=== PATIENT | male | born 1965 | race Caucasian/White ===

== ENCOUNTER 2017-04-09 16:59 | Inpatient (IN) | payer OTHER ==
[~2017-04-09] VITALS: Ht 188 cm; Wt 216.0 kg
[~2017-04-09 16:59] MED LIST: AMLO1CAP9 PO; ATOR10TA PO; BUME1TAB4 PO; FAMO-119 PO; IBUP-2055 PO; POTA20TA8 PO; TRAM50TA2 PO
--- OUTSIDE RECORDS SUMMARY | 2017-04-09 17:05 | XMS REPORT | Referral Summary ---
Author Author [facility] [place] Organization [facility] [place], [facility] Address Unknown Phone Unavailable Care Team Providers Care Bankruptcy Legal Assistant Name Role Phone Jordykim Ned Sr PCP Encounter VC Date(s): 12/04/15 - 12/04/15 Via [facility], Sleep [facility] [address] [place], [place] [address] Discharge Disposition: 01-Home or Self Care Attending Physician: Nargis Haywood Admitting Physician: Nargis Haywood Referring Physician: Nargis Haywood Vital Signs No data available for this section Problem List Condition Effective Dates Status Health Status Informant Obstructive sleep Active apnea, adult(Confirmed) Allergies, Adverse Reactions, Alerts No Known Allergies Medications amoxicillin 500 mg oral capsule 1 caps, Oral, TID, # 30 caps, 0 Refill(s) Start Date: 06/18/14 Stop Date: 06/28/14 Status: Ordered Blood pressure medication Blood pressure medication, 0 Refill(s) Start Date: 07/21/14 Status: Ordered buPROPion 150 mg/24 hours (XL) oral tablet, extended release 1 tabs, Oral, q24hr, # 30 tabs, 0 Refill(s) Start Date: 06/18/14 Status: Ordered hydrocortisone-acetic acid 1%-2% otic solution 3 drops, Ear-Both, QID, # 10 mL, 0 Refill(s) Start Date: 06/18/14 Stop Date: 06/21/14 Status: Ordered Klor-Con M20 oral tablet, extended release 1 tabs, Oral, BID, # 180 tabs, 0 Refill(s) Start Date: 06/18/14 Status: Ordered Results No data available for this section Immunizations Vaccine Date Refusal Reason tetanus-diphth toxoids (Td) adult/adol 11/12/97 Procedures No data available for this section Social History Social History Type Response Smoking Status Never smoker1 1no smokers in the house Assessment and Plan No data available for this section
--- OUTSIDE RECORDS SUMMARY | 2017-04-09 17:05 | XMS REPORT | Referral Summary ---
Author Author Via [facility] [place] Organization Via [facility], [place] [facility] [place] Address Unknown Phone Unavailable Care Team Providers Care Photographic Press Screwmaker Name Role Phone Jordykim Ned Sr PCP Encounter VC Date(s): 02/26/16 - 02/26/16 Via [facility], Sleep Center, [place] [address] [address] careG[address] [place], [place] [address] Discharge Diagnosis: RITIKA treated with BiPAP. Discharge Disposition: 01-Home or Self Care Attending Physician: Hardeep Hodges MD Admitting Physician: Hardeep Hodges MD Vital Signs Most recent to 1 oldest [Reference Range]: Peripheral Pulse 89 bpm Rate [60-100 bpm] (02/26/16 2:55 PM) Blood Pressure 124/80 mmHg [90-140/60-90 mmHg] (02/26/16 2:55 PM) SpO2 96 % (02/26/16 2:55 PM) Problem List Condition Effective Dates Status Health Status Informant Hyperlipemia(Confirm Active patient ed) Obstructive sleep Active apnea, adult(Confirmed) Allergies, Adverse Reactions, Alerts Substance Reaction Severity Status Lortab Nausea Severe Active Percocet 5/325 Nausea Severe Active Medications amLODIPine-benazepril 5 mg-10 mg oral capsule 2 caps, Oral, Daily Start Date: 12/08/15 Status: Ordered atorvastatin 10 mg oral tablet 10 mg 1 tabs, Oral, Bedtime (once a day) Start Date: 12/08/15 Status: Ordered bumetanide 1 mg, Oral, Daily, Fluid Overload Symptoms Start Date: 12/08/15 Status: Ordered ibuprofen 400 mg, Oral, BID Start Date: 12/08/15 Status: Ordered Klor-Con 20 mEq, Oral, Daily Start Date: 12/08/15 Status: Ordered Results No data available for this section Immunizations Vaccine Date Refusal Reason tetanus-diphth toxoids (Td) adult/adol 11/12/97 Procedures Procedure Date Related Diagnosis Body Site Colonoscopy Foot1 Vasectomy 1LEFT FOOT, MASS OF VESSELS THAT HAS BEEN REMOVED TWICE Social History Social History Type Response Smoking Status Never smoker1 1no smokers in the house Assessment and Plan No data available for this section
--- OUTSIDE RECORDS SUMMARY | 2017-04-09 17:05 | XMS REPORT | Referral Summary ---
Author Author Via [facility], [facility], [place] [facility] [place] Organization Via [facility], [facility], [place] [facility] [place] Address Unknown Phone Unavailable Care Team Providers Care Environmental Lawyer Name Role Phone Ned Restrepo PCP Encounter VC Date(s): 12/18/15 - 12/18/15 Via [facility], Sleep Center, [place] [address] [address] [place], [place] [address] Discharge Diagnosis: Obstructive sleep apnea, adult Discharge Disposition: 01-Home or Self Care Attending Physician: Hardeep Hodges MD Admitting Physician: Hardeep Hodges MD Vital Signs Most recent to 1 oldest [Reference Range]: Peripheral Pulse 84 bpm Rate [60-100 bpm] (12/18/15 8:06 AM) Blood Pressure 132/88 mmHg [90-140/60-90 mmHg] (12/18/15 8:06 AM) SpO2 96 % (12/18/15 8:06 AM) Problem List Condition Effective Dates Status Health [...] smokers in the house Assessment and Plan Extracted from: Title: Office Visit Note Author: Hardeep Hodges MD Date: 12/18/15 Assessment/Plan Obstructive sleep apnea, adult This 50 showed gentleman has a mild degree of obstructive sleep apnea that may have become worse over the years. He just had a CPAP re-titration study that moved his CPAP pressure out of prior rangesbeforesome central apneas were detected. I do not believe he will end up with a significant treatment emergent central apnea phenomenon,but the BiPAP utilized for the remainder of his titration study can be employed for comfortwhile treating his RITIKA at higher pressure. He will be set at BiPAP 19/15 cm pressure with no underlying respiratory rate and follow-up in 4-6 weeks to report on symptoms. If he is doing well and his download shows adequate control over his condition, he can then reschedule thesurgeries that hehad to have postponed until his condition comes under better control. The patient and any accompanying family expressed understanding and agreement with this plan after having had adequate time to ask and have questions answered.
--- OUTSIDE RECORDS SUMMARY | 2017-04-09 17:05 | XMS REPORT | Referral Summary ---
Author Author [facility] [place] [facility] [place], [facility] Address Unknown Phone Unavailable Care Team Providers Care Community Resource Officer Name Role Phone Ned Restrepo Orin PCP Encounter VC Date(s): 05/30/16 - 05/30/16 [facility] [place], [facility] [address] [place], [place] [address] Discharge Disposition: 01-Home or Self Care Attending Physician: Hardeep Hodges MD Admitting Physician: Hardeep Hodges MD Referring Physician: Hardeep Hodges MD Vital Signs No data available for this [...]
--- OUTSIDE RECORDS SUMMARY | 2017-04-09 17:05 | XMS REPORT | Referral Summary ---
Author Author [facility], [place] [facility] [place] Organization [facility] [place], [place] [facility] [place] Address Unknown Phone Unavailable Care Team Providers Care Security Developer Name Role Phone Ned Restrepo Orin PCP Encounter VC Date(s): 01/01/16 - 01/01/16 [facility] [place], [facility] [address] [place], [place] [address] Discharge Disposition: 01-Home or Self [...] house Assessment and Plan Extracted from: Title: BIPAP SET UP Author: Michelle Martell REVENUE AGENT Date: 01/01/16 Replacement set up IPAP 19cm, EPAP 15cm, aircurve 10s, humidifier, end cap, S10 filters, simplus M seal 10mo RENT Dr Hodges
--- OUTSIDE RECORDS SUMMARY | 2017-04-09 17:05 | XMS REPORT | Referral Summary ---
Author Author [facility], [place] [facility] [place] Organization [facility] [place], [facility] Address Unknown Phone Unavailable Care Team Providers Care Plush Weaver Name Role Phone Ned Restrepo Orin PCP Encounter VC Date(s): 12/14/15 - 12/14/15 [facility] [place], [facility] [address] [place], [place] [address] Discharge Disposition: 01-Home or Self [...]
--- OUTSIDE RECORDS SUMMARY | 2017-04-09 17:05 | XMS REPORT | Referral Summary ---
Author Author [facility] [place] Organization [facility], [facility], [place] [facility] [place] Address Unknown Phone Unavailable Care Team Providers Care Culinary Internship Name Role Phone Kaye Ned Sr PCP Encounter VC Date(s): 12/08/15 - 12/08/15 [facility], Sleep [place] [address] [address] [place], [place] [address] Discharge Diagnosis: Morbid obesity Discharge Diagnosis: RITIKA on CPAP Discharge Disposition: 01-Home or Self Care Attending Physician: Hardeep Hodges MD Admitting Physician: Hardeep Hodges MD Vital Signs Most recent to 1 oldest [Reference Range]: Peripheral Pulse 88 bpm Rate [60-100 bpm] (12/08/15 3:40 PM) Blood Pressure 130/82 mmHg [90-140/60-90 mmHg] (12/08/15 3:40 PM) SpO2 96 % (12/08/15 3:40 PM) Problem List Condition Effective Dates Status [...]
[2017-04-09] MEDS ORDERED: cefTRIAXone 1 GM (ROCEPHIN) VIAL IV STA (17:48)
[2017-04-09] MEDS ORDERED: NS (IVPB) 50 ML ONE (17:53)
--- NOTE | 2017-04-09 17:59 | ED General ---
General Chief Complaint: Skin/Wound Problems Stated Complaint: R LEG PAIN/REDNESS Nursing Triage Note: to ER with reports of right lower leg redness, and swelling since this morning. Patient reports that the swelling intermittently is not abnormal, but the redness, pain and warmth is. Nursing Sepsis Screen: No Definite Risk Source of Information: Patient Exam Limitations: No Limitations (RUDY KABA MD) History of Present Illness Time Seen by Provider: 17:30 Initial Comments This 52-year-old woman presents to the emergency room with complaints of worsening right lower extremity edema, pain, and erythema. Symptoms started with general malaise about 3 days ago. The pain and erythema in the right lower extremity started this morning. He is now chilled and feels febrile. Patient does have problems with chronic edema and does take Lasix. The right leg is usually more swollen than the left. On my assessment temperature is 100.4. Pain is reported as 6/10. The area involved is rapidly spreading throughout the day. He took ibuprofen this morning which was somewhat helpful. He complains of superficial pain with ambulation. (RUDY KABA MD) Allergies and Home Medications Allergies Coded Allergies: acetaminophen (Verified Allergy, Mild, N/V, 11/11/15) hydrocodone (Verified Allergy, Mild, N/V , 11/11/15) oxycodone (Verified Allergy, Mild, N/V, 11/11/15) Home Medications Amlodipine Besylate/Benazepril 1 Each Capsule, 1 CAP PO DAILY, (Reported) Atorvastatin Calcium 10 Mg Tablet, 10 MG PO DAILY, #30 Prescribed by: HÉCTOR ALVARADO on 11/13/15 0842 Bumetanide 1 Mg Tablet, 1 MG PO DAILY PRN for FLUID RETENSION, (Reported) Ibuprofen 200 Mg Tablet, 400-600 MG PO DAILY PRN for PAIN, (Reported) TAKES 2-3 (200 MG) TABLETS Potassium Chloride 20 Meq Tab.er.prt, 20 MEQ PO UD, (Reported) TAKES ALONG WITH BUMETADINE NEEDED Constitutional: see HPI EENTM: no symptoms reported Respiratory: short of breath Cardiovascular: palpitations (chronic) Gastrointestinal: nausea Genitourinary: no symptoms reported Musculoskeletal: see HPI Skin: see HPI Psychiatric/Neurological: No Symptoms Reported Hematologic/Lymphatic: No Symptoms Reported Immunological/Allergic: no symptoms reported (RUDY KABA MD) Past Vxvffdt-Ymyeod-Kpzbpg Hx Patient Social History Alcohol Use: Occasionally Uses Recreational Drug Use: No Smoking Status: Never a Smoker 2nd Hand Smoke Exposure: No Recent Foreign Travel: No Contact w/Someone Who Travel: No Recent Infectious Disease Expo: No Recent Hopitalizations: No Physical Abuse: No Sexual Abuse: No Mistreated: No Fear: No (RUDY KABA MD) Immunizations Up To Date Tetanus Booster (TDap): Less than 5yrs (RUDY KABA MD) Seasonal Allergies Seasonal Allergies: Yes (RUDY KABA MD) Surgeries History of Surgeries: Yes (LEFT FOOT - BLOOD VESSELS ISSUES ) Surgeries: Vasectomy (RUDY KABA MD) Respiratory History of Respiratory Disorde: No (RUDY KABA MD) Cardiovascular 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) Cardiac Disorders: High Cholesterol, Hypertension, Palpitations (RUDY KABA MD) Neurological History of Neurological Disord: No (RUDY KABA MD) Reproductive System Hx Reproductive Disorders: No (RUDY KABA MD) Genitourinary History of Genitourinary Disor: No (RUDY KABA MD) Gastrointestinal History of Gastrointestinal Di: Yes Gastrointestinal Disorders: Abdominal Hernia (umbilical), Gall Bladder Disease (RUDY KABA MD) Musculoskeletal History of Musculoskeletal Dis: No (RUDY KABA MD) Endocrine History of Endocrine Disorders: No (RUDY KABA MD) HEENT History of HEENT Disorders: No (RUDY KABA MD) Cancer History of Cancer: No (RUDY KABA MD) Psychosocial History of Psychiatric Problem: Yes (MILD ANXIETY ) Behavioral Health Disorders: Anxiety Suicide Risk Score: 0 (RUDY KABA MD) Integumentary History of Skin or Integumenta: Yes Skin/Integumentary Disorders: Recent Skin Changes (RUDY KABA MD) Blood Transfusions History of Blood Disorders: No (RUDY KABA MD) Family Medical History Significant Family History: Heart Disease, Cancer (colon polyps without cancer) , Diabetes Family Medial History: Colon cancer Congenital heart disease Diabetes mellitus Hypertension Myocardial infarction Parkinson's disease Visual disorder (RUDY KABA MD) Family Medial History: Colon cancer Congenital heart disease Diabetes mellitus Hypertension Myocardial infarction Parkinson's disease Visual disorder (ANAID BRANCH APRN) Physical Exam-Suspected Sepsis Physical Exam Vital Signs Vital Sign - Last 12Hours 04/09/17 17:15 Temp 98.2 Pulse 71 Resp 20 B/P (MAP) 162/108 Pulse Ox 97 O2 Delivery Room Air (ANAID BRANCH APRN) Vital Signs Capillary Refill : Less Than 3 Seconds (RUDY KABA MD) Blood Pressure Mean: 126 General Appearance: No Apparent Distress, Mild Distress (chills, uncomfortable) HEENT: PERRL/EOMI, Normal ENT Inspection Neck: Normal Inspection Respiratory: Lungs Clear, Normal Breath Sounds, No Accessory Muscle Use, No Respiratory Distress Cardiovascular: No Edema, No Murmur, Normal Peripheral Pulses, Tachycardia Gastrointestinal: Normal Bowel Sounds, Non Tender, Soft Extremity: Normal Capillary Refill, Other (right lower extremity with anterior erythema, edema, heat, blanching, and tenderness. Distal pulses and capillary refill normal.) Neurologic/Psychiatric: Alert, Oriented x3, No Motor/Sensory Deficits, Normal Mood/Affect, cranberry grower II-XII Norm as Tested Skin: warm/dry, other (see above) (RUDY KABA MD) Focused Exam Evaluation Lactate Level Laboratory Tests 04/09/17 17:45: Lactic Acid Level 1.71 (ANAID BRANCH APRN) Lactic Acid Level Laboratory Tests Test 04/09/17 17:45 Lactic Acid Level 1.71 MMOL/L (0.50-2.00) (ANAID BRANCH APRN) Progress/Results/Core Measures Suspected Sepsis Recent Fever Within 48 Hours: No Infection Criteria Present: Suspected New Infection New/Unexplained Altered Menta: No Sepsis Screen: No Definite Risk Sepsis Diagnosis: SIRS Temperature:98.2 Pulse: 71 Respiratory Rate: 20 Laboratory Tests 04/09/17 17:45: White Blood Count 19.4H Blood Pressure 162 /108 Mean: 126 Laboratory Tests 04/09/17 17:45: Lactic Acid Level 1.71 Laboratory Tests 04/09/17 17:45: Creatinine 0.81, INR Comment 0.9, Platelet Count 342, Total Bilirubin 2.0H (RUDY KABA MD) Results/Orders Lab Results Laboratory Tests Test 04/09/17 17:45 Range/Units White Blood Count 19.4 H 4.3-11.0 10^3/uL Red Blood Count 4.89 4.35-5.85 10^6/uL Hemoglobin 14.5 13.3-17.7 G/DL Hematocrit 42 40-54 % Mean Corpuscular Volume 86 80-99 FL Mean Corpuscular Hemoglobin 30 25-34 PG Mean Corpuscular Hemoglobin Concent 35 32-36 G/DL Red Cell Distribution Width 13.1 10.0-14.5 % Platelet Count 342 130-400 10^3/uL Mean Platelet Volume 9.0 7.4-10.4 FL Neutrophils (%) (Auto) 89 H 42-75 % Lymphocytes (%) (Auto) 4 L 12-44 % Monocytes (%) (Auto) 6 0-12 % Eosinophils (%) (Auto) 0 0-10 % Basophils (%) (Auto) 0 0-10 % Neutrophils # (Auto) 17.3 H 1.8-7.8 X 10^3 Lymphocytes # (Auto) 0.8 L 1.0-4.0 X 10^3 Monocytes # (Auto) 1.2 H 0.0-1.0 X 10^3 Eosinophils # (Auto) 0.1 0.0-0.3 10^3/uL Basophils # (Auto) 0.0 0.0-0.1 10^3/uL Neutrophils % (Manual) 86 % Lymphocytes % (Manual) 6 % Monocytes % (Manual) 3 % Eosinophils % (Manual) 0 % Basophils % (Manual) 0 % Band Neutrophils 5 % Blood Morphology Comment NORMAL Prothrombin Time 12.5 12.2-14.7 SEC INR Comment 0.9 0.8-1.4 Activated Partial Thromboplast Time 27 24-35 SEC D-Dimer 0.50 H 0.00-0.49 UG/ML Sodium Level 138 135-145 MMOL/L Potassium Level 3.8 3.6-5.0 MMOL/L Chloride Level 102 98-107 MMOL/L Carbon Dioxide Level 22 21-32 MMOL/L Anion Gap 14 5-14 MMOL/L Blood Urea Nitrogen 12 7-18 MG/DL Creatinine 0.81 0.60-1.30 MG/DL Estimat Glomerular Filtration Rate > 60 BUN/Creatinine Ratio 15 Glucose Level 94 70-105 MG/DL Lactic Acid Level 1.71 0.50-2.00 MMOL/L Calcium Level 9.4 8.5-10.1 MG/DL Total Bilirubin 2.0 H 0.1-1.0 MG/DL Aspartate Amino Transf (AST/SGOT) 19 5-34 U/L Alanine Aminotransferase (ALT/SGPT) 30 0-55 U/L Alkaline Phosphatase 139 H 40-136 U/L C-Reactive Protein High Sensitivity 1.10 H 0.00-0.50 MG/DL Total Protein 7.2 6.4-8.2 GM/DL Albumin 4.1 3.2-4.5 GM/DL (ANAID BRANCH APRN) My Orders Orders - ANAID BRANCH APRN Us Venous Lower Ext Rt (04/09/17 18:30) (ANAID BRANCH APRN) Medications Given in ED Current Medications Medications Dose Ordered Sig/Vasyl Route Start Time Stop Time Status Last Admin Dose Admin Acetaminophen 1,000 mg ONCE ONCE PO 04/09/17 18:00 04/09/17 18:01 DC 04/09/17 18:02 1,000 MG Sodium Chloride 50 ml @ [facility]-MED ONCE .ROUTE 04/09/17 17:53 04/09/17 18:00 DC 04/09/17 18:05 100 MLS/HR (ANAID BRANHC APRN) Vital Signs/I&O Vital Sign - Last 12Hours 04/09/17 04/09/17 04/09/17 17:15 18:02 19:31 Temp 98.2 100.4 Pulse 71 Resp 20 B/P (MAP) 162/108 Pulse Ox 97 97 O2 Delivery Room Air Room Air Intake and Output 04/10/17 00:00 Intake Total 50 ml Balance 50 ml (ANAID BRANCH APRN) Vital Signs/I&O Capillary Refill : Less Than 3 Seconds (RUDY KABA MD) Blood Pressure Mean: 126 Progress Note : Time: 18:06 Progress Note Patient seen and examined. Septic workup initiated. Rocephin ordered for initial antibiotic therapy. Tylenol given for fever. (RUDY KABA MD) Departure Communication (Admissions) Time/Spoke to Admitting Phy: 19:41 Communication Discussed the case with Dr. Kezia García who is on-call for Dr. Hernandez. We'll admit the patient for IV vancomycin and Rocephin, repeat labs in the morning. Progress Notes 1940- ultrasound shows no evidence of DVT. Patient does meet sepsis criteria with a temperature of 100.4, white blood cell count of 19,000 and a confirmed source of infection being the right leg. However lactic acid is normal, map is greater than 65 he does not meet severe sepsis criteria. He has been given Rocephin 1 g in the emergency room. (ANAID BRANCH APRN) Impression Impression: Primary Impression: Cellulitis of right leg Disposition: ADMITTED INPATIENT Condition: Stable Admissions Decision to Admit Reason: Admit from ER (General) Decision to Admit/Date: Apr 09, 2017 Time/Decision to Admit Time: 19:42 (ANAID BRANCH APRN) Departure-Patient Inst. Referrals: ELENA HERNANDEZ MD (PCP/Family) Primary Care Physician RUDY KABA MD Apr 09, 2017 17:59 ANAID BRANCH APRN Apr 09, 2017 19:42
[2017-04-09] MEDS ORDERED: ACETAMINOPHEN 500 MG TAB (TYLENOL) PO ONE (18:00)
[2017-04-09 18:12] LABS: BASOPHILS % (AUTO) 0 % (0-10); EOSINOPHILS # (AUTO) 0.1 10^3/uL (0.0-0.3); EOSINOPHILS % (AUTO) 0 % (0-10); LYMPHOCYTES # (AUTO) 0.8 X 10^3 (1.0-4.0); LYMPHOCYTES % (AUTO) 4 % (12-44); MEAN CORPUSCULAR HEMOGLOBIN 30 PG (25-34); MEAN CORPUSCULAR HGB CONC 35 G/DL (32-36); MEAN CORPUSCULAR VOLUME 86 FL (80-99); MONOCYTES # (AUTO) 1.2 X 10^3 (0.0-1.0); MONOCYTES % (AUTO) 6 % (0-12); NEUTROPHILS # (AUTO) 17.3 X 10^3 (1.8-7.8); NEUTROPHILS % (AUTO) 89 % (42-75); PLATELET COUNT 342 10^3/uL (130-400); RED BLOOD COUNT 4.89 10^6/uL (4.35-5.85); RED CELL DISTRIBUTION WIDTH 13.1 % (10.0-14.5); WHITE BLOOD COUNT 19.4 10^3/uL (4.3-11.0)
[2017-04-09 18:21] LABS: INR 0.9 (0.8-1.4); PROTHROMBIN TIME PATIENT 12.5 SEC (12.2-14.7)
--- NOTE | 2017-04-09 18:26 | Diagnostic Imaging Report ---
Portable chest compared to prior study from November 11, 2015. INDICATION: Swelling in lower extremity. FINDINGS: Heart size not significantly changed. There is no evidence of overt pulmonary edema or failure by radiography. There is no significant effusion demonstrated. There is no focal alveolar infiltrate. There is no pneumothorax. IMPRESSION: 1. Enlarged cardiac silhouette without radiographic evidence of overt failure. Pulmonary vascular status has improved from the previous comparison exam. Dictated by: Dictated on workstation # [id number]
[2017-04-09 18:27] LABS: BAND NEUTROPHILS 5 %; LYMPHOCYTES % (MANUAL) 6 %; NEUTROPHILS % (MANUAL) 86 %
[2017-04-09 18:28] LABS: BASOPHILS % (MANUAL) 0 %; EOSINOPHILS % (MANUAL) 0 %
[2017-04-09 18:29] LABS: ALANINE AMINOTRANSFERASE 30 U/L (0-55); ALBUMIN 4.1 GM/DL (3.2-4.5); ANION GAP 14 MMOL/L (5-14); ASPARTATE AMINO TRANSFERASE 19 U/L (5-34); BLOOD UREA NITROGEN 12 MG/DL (7-18); BUN/CREATININE RATIO 15; CALCIUM 9.4 MG/DL (8.5-10.1); CARBON DIOXIDE 22 MMOL/L (21-32); CHLORIDE 102 MMOL/L (98-107); CREATININE SERUM 0.81 MG/DL (0.60-1.30); GFR ESTIMATED > 60; GLUCOSE 94 MG/DL (70-105); POTASSIUM 3.8 MMOL/L (3.6-5.0); SODIUM 138 MMOL/L (135-145); TOTAL PROTEIN 7.2 GM/DL (6.4-8.2)
--- NOTE | 2017-04-09 19:45 | Diagnostic Imaging Report ---
PROCEDURE: US right lower extremity venous. TECHNIQUE: Multiple real-time grayscale images were obtained over the right lower extremity in various projections. Additional duplex Doppler and color Doppler images were also obtained. INDICATION: Right leg pain and redness. FINDINGS: Examination is technically challenging. The common femoral vein and proximal superficial femoral vein demonstrate appropriate compression as does the mid superficial femoral vein. There is appropriate flow and augmentation. The distal superficial femoral vein is not well demonstrated. The popliteal vein compresses and demonstrates appropriate flow. IMPRESSION: There is no sonographic evidence of deep venous thrombosis but the examination is technically limited as the distal superficial femoral vein is not visualized. The common femoral vein through the mid superficial femoral vein and the popliteal vein all appear patent. Dictated by: Dictated on workstation # [id number]
[2017-04-09] MEDS ORDERED: ACETAMINOPHEN 325 MG TABLET/CAPLET (TYLENOL) PO PRN (21:00)
[2017-04-09] MEDS ORDERED: morphine INJ 4 MG/ML 1 ML (VIAL/SYRINGE) IVP PRN (21:00)
[2017-04-09] MEDS ORDERED: VANCOMYCIN 1 GM/NS 250 ML IVPB IV SCH ×2 (21:00)
[2017-04-09] MEDS ORDERED: CATHETER FLUSH 10 ML SYR IV PRN (21:00)
[2017-04-09] MEDS: CATHETER FLUSH 10 ML SYR IV SCH (23:45)
[2017-04-09] MEDS: NS IV 1000 ML 1,000 ML IV SCH (23:46)
[2017-04-09] MEDS: IBUPROFEN 600 MG (MOTRIN) TAB PO PRN (23:59)
[2017-04-10 00:06] VITALS: BP 117/68
[2017-04-10 03:42] VITALS: BP 108/66
[2017-04-10 05:26] LABS: BASOPHILS % (AUTO) 0 % (0-10); EOSINOPHILS % (AUTO) 0 % (0-10); LYMPHOCYTES # (AUTO) 1.4 X 10^3 (1.0-4.0); LYMPHOCYTES % (AUTO) 7 % (12-44); MEAN CORPUSCULAR HEMOGLOBIN 30 PG (25-34); MEAN CORPUSCULAR HGB CONC 34 G/DL (32-36); MEAN CORPUSCULAR VOLUME 86 FL (80-99); MEAN PLATELET VOLUME 8.9 FL (7.4-10.4); MONOCYTES # (AUTO) 1.4 X 10^3 (0.0-1.0); MONOCYTES % (AUTO) 7 % (0-12); NEUTROPHILS # (AUTO) 16.8 X 10^3 (1.8-7.8); NEUTROPHILS % (AUTO) 86 % (42-75); PLATELET COUNT 295 10^3/uL (130-400); RED BLOOD COUNT 4.39 10^6/uL (4.35-5.85); RED CELL DISTRIBUTION WIDTH 13.2 % (10.0-14.5); WHITE BLOOD COUNT 19.6 10^3/uL (4.3-11.0)
[2017-04-10 06:23] LABS: ANION GAP 13 MMOL/L (5-14); BLOOD UREA NITROGEN 14 MG/DL (7-18); BUN/CREATININE RATIO 18; CALCIUM 8.8 MG/DL (8.5-10.1); CARBON DIOXIDE 20 MMOL/L (21-32); CHLORIDE 104 MMOL/L (98-107); CREATININE SERUM 0.79 MG/DL (0.60-1.30); GFR ESTIMATED > 60; GLUCOSE 101 MG/DL (70-105); POTASSIUM 3.8 MMOL/L (3.6-5.0); SODIUM 137 MMOL/L (135-145)
[2017-04-10] MEDS ORDERED: VANCOMYCIN INJECTION 2,500 MG in NS IV 500 ML 500 ML IV NR (07:43)
[2017-04-10 07:55] VITALS: BP 136/79
[2017-04-10] MEDS: NS IV 1000 ML 1,000 ML IV SCH ×2 (09:03→13:12)
[2017-04-10] MEDS: CATHETER FLUSH 10 ML SYR IV SCH ×3 (09:04→22:08)
[2017-04-10] MEDS: ENOXAPARIN 40 MG/0.4 ML (LOVENOX) SYR SC SCH (09:04)
--- NOTE | 2017-04-10 11:02 | H&P Pediatric ---
HPI Attending Physician Jason Gooden MD PCP Jason Gooden MD Consult Date of Admission Apr 09, 2017 at 19:36 Home Medications Home Medications Reviewed patient Home Medication Reconciliation Form Allergies Coded Allergies: acetaminophen (Verified Allergy, Mild, N/V, 11/11/15) hydrocodone (Verified Allergy, Mild, N/V , 11/11/15) oxycodone (Verified Allergy, Mild, N/V, 11/11/15) PMH-Pediatrics Patient Social History Physical Abuse Screen: No Sexual Abuse: No Recent Foreign Travel: No Contact w/other who traveled: No Recent Infectious Disease Expo: No Hospitalization with Isolation: Denies 2nd Hand Smoke Exposure: No Immunizations Up To Date Tetanus Booster (TDap): Less than 5yrs Date of Pneumonia Vaccine: Aug 07, 2006 Seasonal Allergies Seasonal Allergies: Yes Family Medical History Significant Family History: Heart Disease, Cancer (colon polyps without cancer) , Diabetes Patient History: Colon cancer Congenital heart disease Diabetes mellitus 19 FATHER 19 MOTHER FH: coronary artery bypass surgery 19 FATHER Hypertension Myocardial infarction 19 FATHER Parkinson's disease Visual disorder Physical Exam-Pediatric Physical Exam Vital Signs Vital Sign - Last 12Hours 04/09/17 17:15 Temp 98.2 Pulse 71 Resp 20 B/P (MAP) 162/108 Pulse Ox 97 O2 Delivery Room Air Capillary Refill : Less Than 3 Seconds LÁZARO LARIOS MD Apr 10, 2017 11:02 am
--- NOTE | 2017-04-10 14:53 | History & Physicial (CHS) ---
HPI History of Present Illness: 52yo male presented to ER with complaints of redness of right leg and fevers in the preceding 24h. Patient states he was week eating over the weekend, which he does regularly. He notes that he usually has a lot of grass blades on him and is often bleeding from where sticks might hit him. This does not usually cause a problem. THis time, he noticed that his right leg was very swollen and painful to walk on. He then began having fevers the next day. Patient has a history of chronic venous insufficieny but states this was above and beyond what he normally does. Source: patient Exam Limitations: no limitations Date seen by provider: Apr 10, 2017 Time Seen by Provider: 11:00 Attending Physician Elena Hernandez MD PCP Elena Hernandez MD Consult Date of Admission Apr 09, 2017 at 7:36 pm Home Medications Home Medications Reviewed patient Home Medication Reconciliation Form Allergies Coded Allergies: acetaminophen (Verified Allergy, Mild, N/V, 11/11/15) hydrocodone (Verified Allergy, Mild, N/V , 11/11/15) oxycodone (Verified Allergy, Mild, N/V, 11/11/15) PMV-Tzxoze-Izvyjw Hx Patient Social History Alcohol Use: Occasionally Uses Recreational Drug Use: No Smoking Status: Never a Smoker 2nd Hand Smoke Exposure: No Recent Foreign Travel: No Contact w/other who traveled: No Recent Hopitalizations: No Recent Infectious Disease Expo: No Physical Abuse Screen: No Sexual Abuse: No Immunizations Up To Date Tetanus Booster (TDap): Less than 5yrs Date of Pneumonia Vaccine: Aug 07, 2006 Family Medical History Significant Family History: Heart Disease, Cancer (colon polyps without cancer) , Diabetes Family History: Colon cancer Congenital heart disease Diabetes mellitus 19 FATHER 19 MOTHER FH: coronary artery bypass surgery 19 FATHER Hypertension Myocardial infarction 19 FATHER Parkinson's disease Visual disorder Review of Systems (CHC) Constitutional: no symptoms reported All Other Systems Reviewed Negative Unless Noted: Yes Reviewed Test Results Reviewed Test Results Lab Laboratory Tests Test 04/09/17 17:45 04/10/17 05:00 Range/Units White Blood Count 19.4 H 19.6 H 4.3-11.0 10^3/uL Red Blood Count 4.89 4.39 4.35-5.85 10^6/uL Hemoglobin 14.5 13.0 L 13.3-17.7 G/DL Hematocrit 42 38 L 40-54 % Mean Corpuscular Volume 86 86 80-99 FL Mean Corpuscular Hemoglobin 30 30 25-34 PG Mean Corpuscular Hemoglobin Concent 35 34 32-36 G/DL Red Cell Distribution Width 13.1 13.2 10.0-14.5 % Platelet Count 342 295 130-400 10^3/uL Mean Platelet Volume 9.0 8.9 7.4-10.4 FL Neutrophils (%) (Auto) 89 H 86 H 42-75 % Lymphocytes (%) (Auto) 4 L 7 L 12-44 % Monocytes (%) (Auto) 6 7 0-12 % Eosinophils (%) (Auto) 0 0 0-10 % Basophils (%) (Auto) 0 0 0-10 % Neutrophils # (Auto) 17.3 H 16.8 H 1.8-7.8 X 10^3 Lymphocytes # (Auto) 0.8 L 1.4 1.0-4.0 X 10^3 Monocytes # (Auto) 1.2 H 1.4 H 0.0-1.0 X 10^3 Eosinophils # (Auto) 0.1 0.0 0.0-0.3 10^3/uL Basophils # (Auto) 0.0 0.0 0.0-0.1 10^3/uL Neutrophils % (Manual) 86 % Lymphocytes % (Manual) 6 % Monocytes % (Manual) 3 % Eosinophils % (Manual) 0 % Basophils % (Manual) 0 % Band Neutrophils 5 % Blood Morphology Comment NORMAL Prothrombin Time 12.5 12.2-14.7 SEC INR Comment 0.9 0.8-1.4 Activated Partial Thromboplast Time 27 24-35 SEC D-Dimer 0.50 H 0.00-0.49 UG/ML Sodium Level 138 137 135-145 MMOL/L Potassium Level 3.8 3.8 3.6-5.0 MMOL/L Chloride Level 102 104 98-107 MMOL/L Carbon Dioxide Level 22 20 L 21-32 MMOL/L Anion Gap 14 13 5-14 MMOL/L Blood Urea Nitrogen 12 14 7-18 MG/DL Creatinine 0.81 0.79 0.60-1.30 MG/DL Estimat Glomerular Filtration Rate > 60 > 60 BUN/Creatinine Ratio 15 18 Glucose Level 94 101 70-105 MG/DL Lactic Acid Level 1.71 0.50-2.00 MMOL/L Calcium Level 9.4 8.8 8.5-10.1 MG/DL Total Bilirubin 2.0 H 0.1-1.0 MG/DL Aspartate Amino Transf (AST/SGOT) 19 5-34 U/L Alanine Aminotransferase (ALT/SGPT) 30 0-55 U/L Alkaline Phosphatase 139 H 40-136 U/L C-Reactive Protein High Sensitivity 1.10 H 0.00-0.50 MG/DL Total Protein 7.2 6.4-8.2 GM/DL Albumin 4.1 3.2-4.5 GM/DL Physical Exam-([facility]) Physical Exam Vital Signs VS - Last 72 Hours, by Label 04/09/17 04/09/17 04/09/17 04/09/17 17:15 18:02 19:31 20:31 Temp 98.2 100.4 98.8 Pulse 71 74 Resp 20 20 B/P (MAP) 162/108 Pulse Ox 97 97 98 O2 Delivery Room Air Room Air Room Air 04/10/17 04/10/17 04/10/17 00:06 03:42 07:55 Temp 102.7 99.8 98.6 Pulse 100 81 76 Resp 20 18 20 B/P (MAP) 117/68 108/66 136/79 Pulse Ox 96 96 94 O2 Delivery Room Air Room Air Room Air Capillary Refill : Less Than 3 Seconds General Appearance: WD/WN, no apparent distress, obese HEENT: PERRL/EOMI, normal ENT inspection, pharynx normal Neck: non-tender, full range of motion, supple, normal inspection Respiratory: lungs clear, normal breath sounds, no respiratory distress, no accessory muscle use Cardiovascular: regular rate, rhythm, no edema, no gallop, no JVD, no murmur Gastrointestinal: normal bowel sounds, non tender, soft, no organomegaly Extremities: normal range of motion, non-tender, no pedal edema, no calf tenderness, normal capillary refill 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, no motor/sensory deficits, alert, normal mood/affect, oriented x 3 Skin: normal color, warm/dry, other (erythema over the RLE, marked with a pen, well within circumscribed area; warm to touch; no open lesions) Assessment/Plan Assessment/Plan Admission Dx SEPSIS SECONDARY TO RLE CELLULITIS HTN CHRONIC VENOUS INSUFFICIENCY HL Plan SEPSIS SECONDARY TO RLE CELLULITIS -on rocephin and vancomycin; marginal improvement in labs but clinically improved -can consider changing rocephin to nafcillin tomorrow if still no improvement, likely doesn't need vanc with no obvious folliculitis/abscess HTN -hold diuretic, start amlodipine -may need to switch to another antihypertensive in future if he has CVI CHRONIC VENOUS INSUFFICIENCY - stop IVF today, keep legs elevated as edema would slow healing HL -restart statin, no active issues DVT proph: Lovenox for now, dc if able to ambulate TID Diagnosis/Problems: Clinical Quality Measures DVT/VTE Risk/Contraindication: Risk Factor Score Per Nursin RFS Level Per Nursing on Admit: 3=High Copy Copies To 1: ELENA HERNANDEZ MD, JULIE A MD Apr 10, 2017 2:53 pm
[2017-04-10 15:45] VITALS: BP 104/64
[2017-04-10] MEDS: cefTRIAXone 1 GM/NS 50 ML IVPB IV SCH ×2 (19:02)
[2017-04-10] MEDS: VANCOMYCIN 2000 MG/NS 500 ML IVPB IV SCH ×2 (19:34)
[2017-04-10] MEDS: ATORVASTATIN 10 MG (LIPITOR) TABLET PO SCH (20:02)
[2017-04-11 00:05] VITALS: BP 125/56
[2017-04-11] MEDS: CATHETER FLUSH 10 ML SYR IV SCH ×3 (06:45→20:36)
[2017-04-11] MEDS ORDERED: TROUGH ORDER-PHARMACY XX NR (07:00)
--- NOTE | 2017-04-11 07:26 | Progress Note (SOAP) ---
Subjective Date Seen by Provider: Apr 11, 2017 Time Seen by Provider: 07:20 Subjective/Events-last exam Patient was resting comfortably this morning. He has been keeping his right lower extremity propped up for elevated. He believes that the erythema may be improved. Objective Exam Vital Signs Date Time Temp Pulse Resp B/P (MAP) Pulse Ox O2 Delivery O2 Flow Rate FiO2 04/11/17 00:05 99.2 81 18 125/56 97 Room Air 04/10/17 21:20 99.9 04/10/17 20:00 Room Air 04/10/17 15:45 99.9 84 20 104/64 95 Room Air 04/10/17 09:00 Room Air 04/10/17 07:55 98.6 76 20 136/79 94 Room Air Capillary Refill : Less Than 3 Seconds General Appearance: No Apparent Distress Respiratory: Chest Non Tender Cardiovascular: Regular Rate, Rhythm Extremity: Swelling (Of the right lower extremity), Other (Mild erythema of approximately two thirds of the right lower leg) Results Lab Microbiology 04/09/17 Blood Culture - Preliminary, Resulted No growth Assessment/Plan Assessment/Plan Assess & Plan/Chief Complaint SEPSIS SECONDARY TO RLE CELLULITIS -on rocephin and vancomycin; marginal improvement in labs but clinically improved -can consider changing rocephin to nafcillin tomorrow if still no improvement, likely doesn't need vanc with no obvious folliculitis/abscess 04/11 will continue with Rocephin today as well as vancomycin. Possible switching to oral antibiotics in the morning. HTN -hold diuretic, start amlodipine -may need to switch to another antihypertensive in future if he has CVI 04/11 will restart diuretic today. CHRONIC VENOUS INSUFFICIENCY - stop IVF today, keep legs elevated as edema would slow healing HL -restart statin, no active issues Clinical Quality Measures DVT/VTE Risk/Contraindication: Risk Factor Score Per Nursin RFS Level Per Nursing on Admit: 3=High ELENA HERNANDEZ MD Apr 11, 2017 07:26
[2017-04-11 07:39] LABS: MEAN PLATELET VOLUME 8.9 FL (7.4-10.4); RED BLOOD COUNT 4.33 10^6/uL (4.35-5.85); RED CELL DISTRIBUTION WIDTH 13.2 % (10.0-14.5); WHITE BLOOD COUNT 9.8 10^3/uL (4.3-11.0)
[2017-04-11 07:45] VITALS: BP 122/64
[2017-04-11 07:53] LABS: ANION GAP 10 MMOL/L (5-14); BLOOD UREA NITROGEN 9 MG/DL (7-18); BUN/CREATININE RATIO 12; CALCIUM 8.9 MG/DL (8.5-10.1); CARBON DIOXIDE 20 MMOL/L (21-32); CHLORIDE 107 MMOL/L (98-107); CREATININE SERUM 0.77 MG/DL (0.60-1.30); GFR ESTIMATED > 60; GLUCOSE 105 MG/DL (70-105); SODIUM 137 MMOL/L (135-145)
[2017-04-11] MEDS: KCL 20 MEQ TAB (K-DUR) PO SCH (08:57)
[2017-04-11] MEDS: BENAZEPRIL 20 MG (LOTENSIN) TAB PO SCH (08:57)
[2017-04-11] MEDS: VANCOMYCIN 2000 MG/NS 500 ML IVPB IV SCH ×4 (08:57→20:36)
[2017-04-11] MEDS: amLODIPine 10 MG (NORVASC) TAB PO SCH (08:58)
[2017-04-11] MEDS: ENOXAPARIN 40 MG/0.4 ML (LOVENOX) SYR SC SCH (09:02)
[2017-04-11] MEDS: BUMETANIDE 1 MG (BUMEX) TAB PO SCH (09:04)
[2017-04-11] MEDS: IBUPROFEN 600 MG (MOTRIN) TAB PO PRN (10:51)
[2017-04-11 15:45] VITALS: BP 118/66
[2017-04-11] MEDS: cefTRIAXone 1 GM/NS 50 ML IVPB IV SCH ×2 (17:41)
[2017-04-11] MEDS: ATORVASTATIN 10 MG (LIPITOR) TABLET PO SCH (20:36)
[2017-04-12] VITALS: BP 132/65
[2017-04-12] MEDS: KCL 20 MEQ TAB (K-DUR) PO SCH (05:53)
[2017-04-12] MEDS: CATHETER FLUSH 10 ML SYR IV SCH (05:53)
[2017-04-12 06:39] LABS: RED BLOOD COUNT 4.22 10^6/uL (4.35-5.85); RED CELL DISTRIBUTION WIDTH 13.3 % (10.0-14.5); WHITE BLOOD COUNT 8.8 10^3/uL (4.3-11.0)
[2017-04-12 06:57] LABS: ANION GAP 11 MMOL/L (5-14); BLOOD UREA NITROGEN 11 MG/DL (7-18); BUN/CREATININE RATIO 14; CALCIUM 8.7 MG/DL (8.5-10.1); CARBON DIOXIDE 22 MMOL/L (21-32); CHLORIDE 106 MMOL/L (98-107); CREATININE SERUM 0.76 MG/DL (0.60-1.30); GFR ESTIMATED > 60; GLUCOSE 101 MG/DL (70-105); POTASSIUM 3.9 MMOL/L (3.6-5.0); SODIUM 139 MMOL/L (135-145)
--- NOTE | 2017-04-12 07:38 | Discharge Summary ---
Diagnosis/Chief Complaint Date of Admission Apr 09, 2017 at 19:36 Date of Discharge April 12, 2017 Discharge Date: Apr 12, 2017 Discharge Time: 07:30 Admission Diagnosis Admission Diagnosis 1. Sepsis secondary to right lower extremity cellulitis 2. Hypertension 3. Chronic venous insufficiency 4. Hyperlipidemia Discharge Diagnosis SEPSIS SECONDARY TO RLE CELLULITIS -on rocephin and vancomycin; marginal improvement in labs but clinically improved -can consider changing rocephin to nafcillin tomorrow if still no improvement, likely doesn't need vanc with no obvious folliculitis/abscess 04/11 will continue with Rocephin today as well as vancomycin. Possible switching to oral antibiotics in the morning. HTN -hold diuretic, start amlodipine -may need to switch to another antihypertensive in future if he has CVI 04/11 will restart diuretic today. CHRONIC VENOUS INSUFFICIENCY - stop IVF today, keep legs elevated as edema would slow healing HL -restart statin, no active issues Reason Hospital Visit 52-year-old male presents to [facility] emergency department during the late afternoon of April 09, 2017 due to swelling and erythema of the right lower extremity. Patient reports he had been doing some yard work a few days prior and did have some what he describes as bleeding from apparently weed trimming. He does admit to fever as well. He just didn't feel well and he presented to [facility] emergency department. Discharge Summary Hospital Course Hospital Course Patient was admitted on April 09, 2017 and initiated on IV vancomycin as well as IV Rocephin. Patient received first dose of Rocephin in the emergency department. He also received IV fluids due to the sepsis based upon the tachycardia, increased white blood cell count and fever. Patient's temperature noted to normalize during the course of the first 24 hours. His CBC was also followed during the course of his stay. His white blood cell count initially 18 ,000 on presentation dropped to 8000 on day of dismissal on April 12, 2017. Patient had IV fluids discontinued on April 11, 2017 due to swelling of the lower extremities. He had previously been on Bumex and this was restarted also on April 11, 2017. Patient was felt ready for dismissal in the morning of April 12 and all questions were answered. He will follow-up in 5 days. Labs Laboratory Tests 04/09/17 17:45: White Blood Count 19.4H, Neutrophils (%) (Auto) 89H, Lymphocytes (%) (Auto) 4L, Neutrophils # (Auto) 17.3H, Lymphocytes # (Auto) 0.8L, Monocytes # (Auto) 1.2H, D-Dimer 0.50H, Total Bilirubin 2.0H, Alkaline Phosphatase 139H, C-Reactive Protein High Sensitivity 1.10H 04/10/17 05:00: White Blood Count 19.6H, Neutrophils (%) (Auto) 86H, Lymphocytes (%) (Auto) 7L, Neutrophils # (Auto) 16.8H, Monocytes # (Auto) 1.4H, Hemoglobin 13.0L, Hematocrit 38L, Carbon Dioxide Level 20L 04/11/17 07:31: Hemoglobin 12.9L, Hematocrit 37L, Carbon Dioxide Level 20L, Red Blood Count 4.33L, Vancomycin Level Trough 9.6L 04/12/17 05:55: Hemoglobin 12.5L, Hematocrit 37L, Red Blood Count 4.22L Procedures None. Discharge Physical Examination Allergies: Coded Allergies: acetaminophen (Verified Allergy, Mild, N/V, 11/11/15) hydrocodone (Verified Allergy, Mild, N/V , 11/11/15) oxycodone (Verified Allergy, Mild, N/V, 11/11/15) Vitals & I&Os Vital Signs Date Time Temp Pulse Resp B/P (MAP) Pulse Ox O2 Delivery O2 Flow Rate FiO2 04/12/17 00:00 98.3 77 22 132/65 97 Room Air General Appearance: No Acute Distress Respiratory: Clear to Auscultation Cardiovascular: Regular Rate Extremities: Other (There is minimal swelling of the right lower extremity as compared to the right. The previous erythema had markedly decreased.) Discharge Home Medications Reviewed and agree with Discharge Medication list on patient's Discharge Instruction sheet Instructions to Patient/Family Please see electonic discharge instructions given to patient. Clinical Quality Measures DVT/VTE Risk/Contraindication: Risk Factor Score Per Nursin RFS Level Per Nursing on Admit: 3=High ELENA HERNANDEZ MD Apr 12, 2017 07:38
[2017-04-12] MEDS ORDERED: CEPH500T PO (07:40)
--- NOTE | 2017-04-12 07:42 | Discharge Inst-Simple/Standard ---
Discharge Inst-Standard Discharge Medications New, Converted or Re-Newed RX: Transmitted to Pharmacy Patient Instructions/Follow Up Plan of Care/Instructions/FU: With Dr. Hernandez on April 18 or April 19. Activity as Tolerated: Yes (But keep right lower extremity elevated as much as possible.) Discharge Diet: Low Fat/Low Cholesterol Return to The Hospital For: Increasing swelling and pain of the right lower extremity. Also if erythema worsens. ELENA HERNANDEZ MD Apr 12, 2017 07:42
[2017-04-12 08:00] VITALS: BP 138/93
[2017-04-12] MEDS: VANCOMYCIN 2000 MG/NS 500 ML IVPB IV SCH ×2 (08:04)
[2017-04-12] MEDS: BUMETANIDE 1 MG (BUMEX) TAB PO SCH (08:05)
[2017-04-12] MEDS: BENAZEPRIL 20 MG (LOTENSIN) TAB PO SCH (08:05)
[2017-04-12] MEDS: ENOXAPARIN 40 MG/0.4 ML (LOVENOX) SYR SC SCH (08:05)
[2017-04-12] MEDS: amLODIPine 10 MG (NORVASC) TAB PO SCH (08:05)
[2017-04-12 11:15] VITALS: BP 138/93
== END 2017-04-12 11:25 | disposition home or self-care (01) | DRG 872 ==
LOC: EDUNIT# 16:59 → ER 17:01 → 4TH 19:36
PROVIDERS: ADMIT Pediatrics; ATTEND Family Medicine
DX: A41.9 Sepsis, unspecified organism (principal); L03.115 Cellulitis of right lower limb; R60.0 Localized edema; I87.2 Venous insufficiency (chronic) (peripheral); I10 Essential (primary) hypertension; E78.5 Hyperlipidemia, unspecified; F41.9 Anxiety disorder, unspecified
CPT/HCPCS: 36415; 71010; 76937; 80048; 80053; 80202; 83605; 85007; 85025; 85027; 85379; 85610; 85730; 86141; 87040; 96365

== ENCOUNTER → 2017-04-26 | Outpatient (CLI) | payer OTHER ==
[~2017-04-26] MED LIST changes: +CEPH500T PO
--- NOTE | 2017-04-26 12:24 | Diagnostic Imaging Report ---
PROCEDURE: US right lower extremity venous. TECHNIQUE: Multiple real-time grayscale images were obtained over the right lower extremity in various projections. Additional duplex Doppler and color Doppler images were also obtained. INDICATION: Pain and swelling. Exam compared 04/09/2017. Previously on a technical basis, there is nonidentification of the distal superficial femoral vein, the femoral popliteal deep venous system on followup is adequately visualized and cannot be confirmed patent. No deep or superficial thrombus. No fluid collection. IMPRESSION: Negative right lower extremity venous Doppler and ultrasound. Dictated by: Dictated on workstation # [id number]
== END ==
LOC: RAD 11:18
PROVIDERS: ATTEND Family Medicine
DX: R22.41 Localized swelling, mass and lump, right lower limb; M79.661 Pain in right lower leg

== ENCOUNTER 2017-04-28 13:00 | Outpatient (RCR) | payer OTHER ==
[2017-04-26] MEDS: cefTRIAXone 2 GM (ROCEPHIN) VIAL IM SCH (13:16)
[2017-04-26 13:19] VITALS: BP 133/84
[2017-04-27] MEDS: cefTRIAXone 2 GM (ROCEPHIN) VIAL IM SCH (13:45)
[2017-04-27] MEDS: LIDOCAINE PF 1% 5 ML (XYLOCAINE) AMP ONE ×2 (13:45→14:09)
[2017-04-27 14:15] VITALS: BP 114/91
[~2017-04-28] VITALS: Ht 188 cm; Wt 215.6 kg
[~2017-04-28 13:00] MED LIST changes: +LIDOCAINE 1% INJ 20 ML (XYLOCAINE) VIAL INJ SCH; +LIDOCAINE 1% INJ 20 ML (XYLOCAINE) VIAL ONE; +LIDOCAINE PF 1% 5 ML (XYLOCAINE) AMP INJ ONE; +LIDOCAINE PF 1% 5 ML (XYLOCAINE) AMP ONE
[2017-04-28 13:10] VITALS: BP 167/96
[2017-04-28] MEDS: cefTRIAXone 2 GM (ROCEPHIN) VIAL IM SCH (13:13)
== END 2017-05-06 | disposition home or self-care (01) ==
LOC: SDC 13:00
PROVIDERS: ATTEND Family Medicine
DX: L03.115 Cellulitis of right lower limb (principal)
CPT/HCPCS: 96372

== ENCOUNTER → 2017-05-05 | Outpatient (CLI) | payer OTHER ==
[~2017-05-05] MED LIST changes: -LIDOCAINE 1% INJ 20 ML (XYLOCAINE) VIAL INJ SCH; -LIDOCAINE 1% INJ 20 ML (XYLOCAINE) VIAL ONE; -LIDOCAINE PF 1% 5 ML (XYLOCAINE) AMP INJ ONE; -LIDOCAINE PF 1% 5 ML (XYLOCAINE) AMP ONE
--- NOTE | 2017-05-05 16:43 | Diagnostic Imaging Report ---
PROCEDURE: US Bilateral lower extremity arterial. TECHNIQUE: Multiple real-time grayscale images are obtained through both lower extremity arterial systems with color Doppler imaging and color Doppler spectral analysis. INDICATION: Bilateral lower extremity edema. COMPARISON: None available. Right lower extremity: Color Doppler imaging demonstrates the common femoral, proximal deep femoral, superficial femoral, popliteal, posterior tibial and dorsalis pedis arteries to be patent. Spectral duplex imaging demonstrates normal triphasic waveforms throughout the right lower extremity. No elevated velocities to indicate hemodynamically significant stenosis. Left lower extremity: Color Doppler imaging demonstrates the common femoral, superficial femoral, proximal deep femoral, popliteal, posterior tibial and dorsalis pedis arteries to all be patent. Spectral analysis demonstrates abnormal biphasic waveforms throughout the majority of the lower extremity. However, there are no elevated velocities to indicate hemodynamically significant stenosis. IMPRESSION: 1. No occlusion or hemodynamically significant stenosis of the bilateral lower extremity arteries. Dictated by: Dictated on workstation # [id number]
== END ==
LOC: RAD 12:52
PROVIDERS: ATTEND Family Medicine
DX: R60.0 Localized edema (principal)
CPT/HCPCS: 93925

== ENCOUNTER → 2021-08-25 | Outpatient (CLI) | payer OTHER ==
[~2021-08-25] MED LIST changes: +AMLO-66 PO; -AMLO1CAP9 PO; -BUME1TAB4 PO; +BUME1TAB8 PO; -IBUP-2055 PO; +IBUP-2473 PO; +POTA-169 PO; -POTA20TA8 PO; -TRAM50TA2 PO; +TRM50T PO
--- NOTE | 2021-08-25 12:51 | Diagnostic Imaging Report ---
INDICATION: Cough and shortness of air. Patient is positive for COVID-19. TIME OF EXAM: 11:59 a.m. COMPARISON: Correlation is made with prior chest from 04/09/2017. FINDINGS: The heart size is normal. The pulmonary vascularity is unremarkable. The lungs are clear. No infiltrate, effusion or pneumothorax is detected. IMPRESSION: No acute cardiopulmonary process is detected. Dictated by: Dictated on workstation # [id number]
== END ==
LOC: RAD 11:32
PROVIDERS: ATTEND Family Medicine
DX: U07.1 COVID-19 (principal)
CPT/HCPCS: 71046

== ENCOUNTER 2021-08-30 11:07 | Outpatient (CLI) | payer OTHER ==
[~2021-08-30] VITALS: Ht 188 cm; Wt 237.0 kg
[2021-08-30 11:10] VITALS: BP 167/99
[2021-08-30] MEDS ORDERED: ONDANSETRON 4 MG/2 ML (SDV) Z0FRAN IV PRN (11:30)
[2021-08-30] MEDS ORDERED: EPINEPHrine INJECTION 1 MG/ML AMP IM PRN (11:30)
[2021-08-30] MEDS ORDERED: diphenhydrAMINE 50 MG/ML INJ (BENADRYL) IV PRN (11:30)
[2021-08-30] MEDS ORDERED: ACETAMINOPHEN 500 MG TAB (TYLENOL) PO PRN (11:30)
[2021-08-30] MEDS ORDERED: CASIRIVIMAB/IMDEVIMAB 1,200 MG in NS (IVPB) 50 ML IV ONE (11:30)
[2021-08-30 12:20] VITALS: BP 159/90
== END 2021-08-30 12:30 | disposition home or self-care (01) ==
LOC: INFUSION 11:07
PROVIDERS: ATTEND Family Medicine
DX: U07.1 COVID-19 (principal)

== ENCOUNTER → 2022-10-17 | Outpatient (CLI) | payer BC, OTHER ==
--- NOTE | 2022-10-17 13:14 | Diagnostic Imaging Report ---
EXAMINATION: Left knee radiographs, 3 views. COMPARISON: None. HISTORY: 57-year-old male, left knee pain. FINDINGS: There is moderate medial and patellofemoral compartment joint space loss. There are small medial compartment osteophytes. There is no knee joint effusion. There is no identified acute fracture. IMPRESSION: Moderate medial and patellofemoral compartment osteoarthritis of the left knee without knee joint effusion. Dictated by: Dictated on workstation # [id number]
== END ==
LOC: RAD 11:35
PROVIDERS: ATTEND Family Medicine
DX: M17.12 Unilateral primary osteoarthritis, left knee (principal)
CPT/HCPCS: 73562

== ENCOUNTER → 2023-04-24 | Outpatient (CLI) | payer BC ==
--- NOTE | 2023-04-24 14:06 | Diagnostic Imaging Report ---
PROCEDURE: US right lower extremity venous. TECHNIQUE: Multiple real-time grayscale images were obtained over the right lower extremity in various projections. Additional spectral analysis and color Doppler duplex images were also obtained. INDICATION: Right leg pain and swelling. COMPARISON: Non available. FINDINGS: The right common femoral, femoral and popliteal veins are patent by color doppler imaging and without DVT. Visualized proximal aspects of the greater saphenous, deep femoral and posterior tibial are also patent. . Peroneal vein is not able to be visualized. All of the evaluated deep venous structures demonstrate normal compressibility and waveform augmentation where applicable. IMPRESSION: No right lower extremity deep venous thrombosis (DVT). Dictated by: Dictated on workstation # [id number]
== END ==
LOC: RAD 13:17
PROVIDERS: ATTEND Nurse Practitioner Family
DX: M79.604 Pain in right leg (principal); M79.89 Other specified soft tissue disorders; L03.115 Cellulitis of right lower limb; I89.0 Lymphedema, not elsewhere classified; E66.9 Obesity, unspecified; E78.49 Other hyperlipidemia